=== PATIENT | female | born 1980 | race Hispanic/Latino ===

== ENCOUNTER 2021-12-29 18:30 | Observation (INO) | payer OTHER, SELFPAY ==
--- NOTE | ~2021-12-29 | CT_ITS ---
EXAMINATION: CT abdomen pelvis w con DATE: 12/29/2021 21:24 INDICATION: Abdominal pain, nausea and vomiting. TECHNIQUE: Computed tomography (CT) of the abdomen and pelvis was performed with 100 cc Omnipaque 350 intravenous contrast. The dose-length product was 409.32 mGy-cm. Automated exposure control and iter ative reconstruction technique were employed. COMPARISON: None. FINDINGS: There is dependent atelectasis in the lung bases. Heart size is normal. No significant vasc ular abnormality. Retroaortic left renal vein. Gallbladder is severely dilated with gallbladder wall thickening and multiple stones. There is a comm on duct stone measuring 9 mm, image 60. The liver, spleen, pancreas, adrenal glands and kidneys are u nremarkable. No lymphadenopathy. Nonobstructive bowel gas pattern. No abnormal pelvic masses or fluid collections. IMPRESSION: 1. Choledocholithiasis with biliary dilatation and gallbladder wall thickening as well as distention. Multiple additional gallstones are present. Findings suspicious for cholecystitis. Clinically correl ate. Reviewed, dictated and finalized at location A. RNATIVE ENERGY TECHNICIAN IMPRESSION: 1. Choledocholithiasis with biliary dilatation and gallbladder wall thickening as well as distention. Multiple additional gallstones are present. Findings victor hugo picious for cholecystitis. Clinically correlate.
--- NOTE | ~2021-12-29 | MR_ITS ---
EXAMINATION: MR MRCP wo/w con/w 3D wo ind DATE: 12/30/2021 16:13 INDICATION: Choledocholithiasis. Right upper quadrant abdominal pain. TECHNIQUE: Magnetic resonance imaging (MRI) of the abdomen was performed without and with 14 mL Multi Ana intravenous contrast. Sequences included coronal T2-weighted FS FSE, coronal T2-weighted FSE, a xial T1-weighted LAVA, coronal FS FIESTA, axial dual-echo T1-weighted SPGR, coronal lava-FLEX, sagitt al T2-weighted FSE, axial T2-weighted FSE, and axial DWI. Thick-slab T2-weighted FSE images were obta ined for magnetic resonance cholangiopancreatography (MRCP). Maximum intensity projection 3-D reconst ructions of the volumetric data were created by the technologist. Postcontrast sequences included cor onal LAVA-flex and time course of axial T1-weighted LAVA. COMPARISON: CT abdomen and pelvis 12/29/2021 FINDINGS: ABDOMEN MRI: There is diffuse hepatic steatosis. The gallbladder is distended and contains gallstones . There is a 9 mm cyst in the cystic duct. The spleen, pancreas, adrenal glands, and kidneys are norm al. There are no dilated loops of bowel. There are no pathologically enlarged lymph nodes. There is n o free intraperitoneal fluid. ABDOMEN MRCP: The common duct measures 3 mm. No choledocholithiasis. IMPRESSION: 1. Acute calculous cholecystitis. 2. Normal common duct. No choledocholithiasis. Reviewed, dictated and finalized at location A. D HEALTH ASSOCIATE
[2021-12-29 18:33] VITALS: BP 114/89; PULSE 96; RESP 18; TEMP 36.3; O2SAT 98
[2021-12-29 19:10] LABS: Basophils Percent Auto 0.3 % (0.2-1.2); Eosinophils Absolute Auto 0.2 K/mm3 (0-0.3); Eosinophils Percent Auto 3.7 % (0-4.4); Hematocrit 37.6 % (37.0-47.0); Hemoglobin 12.7 g/dL (12.0-15.0); Immature Granulocyte Absolute 0.01 K/mm3 (0.00-0.031); Immature Granulocyte Percent A 0.2 % (0-0.5); Lymphocytes Absolute Auto 1.83 K/mm3 (0.9-3.2); Lymphocytes Percent Auto 29.2 % (18.3-44.2); Mean Corpuscular HGB Conc 33.8 g/dl (32-36); Mean Corpuscular Volume 88.9 fl (80-100); Mean Platelet Volume 8.6 fl (7.4-10.4); Monocytes Absolute Auto 0.5 K/mm3 (0.1-0.6); Monocytes Percent Auto 8.1 % (2.6-8.5); Neutrophils Absolute Auto 3.7 K/mm3 (1.3-6.7); Neutrophils Percent Auto 58.5 % (45.5-73.1); Platelet Count Result 252 k/mm3 (150-375); Red Blood Count 4.23 M/mm3 (4.2-5.4); Red Cell Distribution Width 12.2 % (11.5-14.5); White Blood Count 6.3 K/mm3 (4.5-10.0)
--- NOTE | 2021-12-29 19:11 | ED.ABDPAIN ---
HPI - Abdominal Pain General Chief Complaint: Abdominal Pain Stated Complaint: abd pain Time Seen by Provider: 12/29/21 18:34 Source: patient Mode of arrival: ambulatory Limitations: language barrier ([employer] hide house utilized) History of Present Illness HPI narrative: This is a 41-year-old female who presents to the ED with complaints of epigastric abdominal pain x8 days. Patient reports she has a history of gastritis, diagnosed 15 years ago. Her last episode of gastritis was around 2 weeks ago, which lasted for 4 days at that time. She was not seen by a medical professional at that time. She states her episodes of gastritis are typically flared by eating spicy food. She did eat something spicy prior to this episode starting 8 days ago. She also reports having nausea and vomiting, but denies any fever, diarrhea, constipation, rectal bleeding, urinary symptoms, cough, congestion. She does mention her kids have been sick with vomiting as well. [email or web address] speech language pathology assistant was utilized in patient's room. Related Data Allergies Allergy/AdvReac Type Severity Reaction Status Date / Time No Known Allergies Allergy Unverified 02/13/16 19:29 Review of Systems Review of Systems: CONSTITUTIONAL: Denies fever, chills, or sweats. ENT: Denies rhinorrhea, congestion. CARDIOVASCULAR: Denies chest pain. RESPIRATORY: Denies cough or dyspnea. GASTROINTESTINAL: Reports abdominal pain, nausea, vomiting. Denies diarrhea, constipation, rectal bleeding. GENITOURINARY: Denies dysuria or hematuria. MUSCULOSKELETAL: Denies back pain, joint pain, or myalgia. NEUROLOGIC: Denies headache, numbness, or weakness. All systems reviewed & are unremarkable except as noted in HPI and below PMFSH Past Medical History Medical History (Updated 12/29/21 @ 22:46 by Shell Zavala PA-C) Gastritis Surgical History Surgical History (Updated 12/29/21 @ 19:36 by Shell Zavala PA-C) No pertinent past surgical history Social History Social History (Updated 12/29/21 @ 19:36 by Shell Zavala PA-C) Smoking status: Never smoker Alcohol intake: never Exam Narrative: GENERAL: Well appearing, well-nourished, non-toxic, in no acute distress. HEAD: Normocephalic, atraumatic. EYES: EOMI, conjunctivae clear bilaterally. NECK: Supple. No adenopathy, no masses. RESPIRATORY: Airway patent, respirations nonlabored. Clear to auscultation bilaterally, no rales, rhonchi, wheezing. CARDIOVASCULAR: Regular rate and rhythm without murmurs, rubs, or gallops. Peripheral pulses 2+ and equal bilaterally. ABDOMINAL: Soft, diffuse mild tenderness to palpation, moderate tenderness to palpation in epigastrium and RUQ, nondistended, no hepatosplenomegaly. Normoactive BS. MUSCULOSKELETAL: Moves all extremities. Strength/ROM intact without gross deformities or TTP. No edema. SKIN: Warm, dry, normal color. No rashes. NEURO: A&O X3. Speech clear. Cranial nerves II-XII grossly intact. Steady gait. No ataxic movements. PSYCHIATRIC: Appropriate mood and affect. Normal interaction. Course Reevaluation(s) Reevaluation #1: Patient's pain still 6/10 in epigastrium and RUQ. Nausea improved. Date: 12/29/21 Time: 21:00 Consultations Consultation #1: Discussed with Dr. Enciso, GI patient presentation and workup. Agrees with admission at this time. Will consult. Date: 12/29/21 Time: 21:42 Consultation #2: Discussed with Dr. Ye, Hospitalist patient presentation and workup. Agrees with admission at this time. Date: 12/29/21 Time: 22:07 Date: 12/29/21 Time: 22:40 Additional Consultation(s): Discussed with Dr. Barker, General Surgery patient presentation and workup. Agrees with admission at this time. Will consult. Vital Signs Vital signs: Vital Signs Temperature 97.4 F L 12/29/21 18:33 Pulse Rate 96 12/29/21 18:33 Respiratory Rate 18 12/29/21 18:33 Blood Pressure 114/89 12/29/21 18:33 Pulse Oximetry 98 12/29/21 18:33 Temperature 97.4 F L
[2021-12-29 19:20] LABS: Alanine Aminotransferase 18 U/L (4-35); Albumin Level 4.4 g/dL (3.5-5.1); Alkaline Phosphatase 125 U/L (38-126); Anion Gap 7 mmol/L (8-16); Aspartate Amino Transferase 20 U/L (14-36); Bilirubin,Total 0.9 mg/dL (0.2-1.3); Blood Urea Nitrogen 8 mg/dL (7-17); Calcium 8.8 mg/dL (8.4-10.2); Carbon Dioxide 26 mmol/L (22-30); Chloride 103 mmol/L (98-107); Estimated CRCL calculation 86 ml/min; Estimated Glomerular Filt Rate > 60; Glucose 110 mg/dL (65-110); Lipase 94 U/L (23-300); Potassium 3.9 mmol/L (3.4-5.0); Sodium 136 mmol/L (137-145)
[2021-12-29] MEDS: SODIUM CHLORIDE 0.9% IV 1,000 ML 999 ML IV CONT (19:28)
[2021-12-29] MEDS: FAMOTIDINE 20 MG/2 ML VIAL IV PUSH (19:29)
[2021-12-29] MEDS: ONDANSETRON INJ 4 MG/2 ML VIAL IV PUSH (19:29)
[2021-12-29 19:43] LABS: Add Urine Microscopic? YES; Appearance Urine Clear (Clear); Bilirubin Urine Negative (Negative); Blood Urine 2+ (Negative); Color Urine Yellow (Yellow); Glucose Urine UA Negative (Negative); Ketones Urine 1+ mg/dL (Negative); Leukocyte Esterase Ur Negative LEU/UL (Negative); Nitrate Urine Negative (Negative); Protein Urine Negative (Negative); RBC Urine 0-2 /hpf (0-2); Squamous Epithelial Cell Urine Occasional /hpf (Few); Urobilinogen Urine Negative mg/dL (<2.0); WBC Urine 0-3 /hpf
[2021-12-29 20:09] VITALS: BP 114/73; PULSE 69; RESP 18; O2SAT 99
[2021-12-29 21:23] VITALS: BP 110/65; PULSE 81; RESP 18; O2SAT 99
[2021-12-29] MEDS: MORPHINE SULFATE (*CRX) 4 MG/ML INJ IV PUSH (21:30)
--- NOTE | 2021-12-29 22:10 | PM.IMHP ---
H&P: HPI History of Present Illness Date/Time: 12/29/21 22:10 Chief Complaint: Nausea and vomiting Narrative: This is a 41-year-old female with no significant past medical history patient presents to the emergency room due to right upper quadrant pain, nausea and vomiting for the last 8 days or so patient denies any fevers, rigors or chills, has not been able to eat or keep anything down. Pain is localized to the epigastric and right upper quadrant with radiation to the back she is rating is 3/10 at the time of my visit. Preliminary workup was significant for CT of abdomen and pelvis with numerous gallstones. Patient is been admitted for further evaluation management and treatment. Review of Systems Review of Systems: Nausea vomiting and abdominal pain Constitutional: Constitutional: Denies chills, Denies fever(s) and Denies night sweats Eyes: Eyes: Denies change in vision ENT: Denies dysphagia, Denies nasal congestion, Denies nasal discharge, Denies nasal obstruction and Denies odynophagia Cardiovascular: Cardiovascular: Denies pedal edema, Denies leg edema, Denies radiating jaw, neck or arm pain, Denies palpitations, Denies dyspnea on exertion and Denies orthopnea Respiratory: Respiratory: Denies cough, Denies excessive phlegm production and Denies dyspnea Gastrointestinal: Gastrointestinal: Reports abdominal pain, Denies dyspepsia, Denies heartburn, Reports nausea and Reports vomiting Genitourinary: Genitourinary: Denies dysuria Musculoskeletal: Musculoskeletal: Denies arthralgias and Denies joint swelling Integumentary/Breasts: Skin/Breast: Denies rash Neurologic: Denies focal weakness and Denies Sensory deficit (Neuro) Psychiatric: Psychiatric: Reports no additional psychiatric complaints and Reports as per HPI Endocrine: Endocrine: Denies cold intolerance, Denies heat intolerance, Denies polyphagia, Denies polydipsia, Denies polyuria and Denies palpitations Hematologic/Lymphatic: Hematologic/Lymphatic: Reports no additional hematologic/lymphatic complaints and Reports as per HPI Allergic/Immunologic: Allergic/Immunologic: Reports no additional allergic/immunologic complaints and Reports as per HPI [facility] Past Medical History Medical History (Updated 12/30/21 @ 02:16 by Genia Ye MD) Gastritis Surgical History Surgical History (Updated 12/29/21 @ 19:36 by Shell Zavala PA-C) No pertinent past surgical history Social History Social History (Updated 12/29/21 @ 19:36 by Shell Zavala PA-C) Smoking status: Never smoker Alcohol intake: never Substance use: never Substance use type: does not use Spiritual care concerns: No Meds Home Medications and Allergies Allergies Allergy/AdvReac Type Severity Reaction Status Date / Time No Known Allergies Allergy Unverified 02/13/16 19:29 Vital Signs Vital Signs - 24 hr 12/29/21 18:33 12/29/21 20:09 12/29/21 21:23 Temperature 97.4 F L Pulse Rate 96 69 81 Respiratory Rate 18 18 18 Blood Pressure 114/89 114/73 110/65 Pulse Oximetry 98 99 99 Exam Narrative: Patient is laying extraction Const: General: cooperative, comfortable, no acute distress, well developed, alert, awake and other (Well-appearing) Nutritional Appearance: average body habitus Orientation/consciousness: patient oriented x3 HENMT: Head: normal to inspection, normocephalic and atraumatic Ears: hearing grossly normal bilaterally General nose exam: Normal external nose present Face and sinus: normal facial exam Mouth: Yes Normal oral and palatal mucosa present Eyes: General: appearance normal, both eyes and all related structures Alignment and Position: alignment normal Sclera: sclerae normal Pupils: Equal, round and reactive pupils present EOM: EOMs intact bilaterally Neck: Neck: normal visual inspection, full ROM, no lymphadenopathy, supple and no JVD Thyroid: thyroid normal Lymphatic: no lymphadenopathy noted Resp: Effort & Inspection: normal r
[2021-12-29 23:29] VITALS: BP 115/72; PULSE 76; RESP 16; TEMP 36.1; O2SAT 100
[2021-12-29 23:30] VITALS: BMI 28.8
[2021-12-30 05:27] VITALS: BP 97/59; PULSE 70; RESP 16; TEMP 36.3; O2SAT 98
--- NOTE | 2021-12-30 07:24 | ADMGEN ---
[id number] This patient, Mallorie Nugent, was admitted to 3 [facility] Surg Room 328-01. Patient/family oriented to hospital policies and general routines including ID bracelet, bed and alarms, visiting hours, pain management, procedures, bathroom and other care routines, personal items, smoking policy, room service/diet, and visiting hours. Information on how to activate the Rapid Response Team has been discussed. Patient/Family are encouraged to report perceived risks to care and to ask questions if they do not understand what they are told or what they should do.
[2021-12-30 08:14] LABS: Basophils Percent Auto 0.3 % (0.2-1.2); Eosinophils Absolute Auto 0.2 K/mm3 (0-0.3); Eosinophils Percent Auto 3.8 % (0-4.4); Hematocrit 37.5 % (37.0-47.0); Hemoglobin 12.1 g/dL (12.0-15.0); Immature Granulocyte Absolute 0.02 K/mm3 (0.00-0.031); Immature Granulocyte Percent A 0.3 % (0-0.5); Lymphocytes Absolute Auto 1.44 K/mm3 (0.9-3.2); Lymphocytes Percent Auto 23.7 % (18.3-44.2); Mean Corpuscular HGB Conc 32.3 g/dl (32-36); Mean Corpuscular Hemoglobin 29.4 pg (26-34); Mean Corpuscular Volume 91.2 fl (80-100); Mean Platelet Volume 8.7 fl (7.4-10.4); Monocytes Absolute Auto 0.5 K/mm3 (0.1-0.6); Monocytes Percent Auto 7.4 % (2.6-8.5); Neutrophils Absolute Auto 3.9 K/mm3 (1.3-6.7); Neutrophils Percent Auto 64.5 % (45.5-73.1); Platelet Count Result 236 k/mm3 (150-375); Red Blood Count 4.11 M/mm3 (4.2-5.4); Red Cell Distribution Width 12.2 % (11.5-14.5); White Blood Count 6.1 K/mm3 (4.5-10.0)
[2021-12-30 08:18] LABS: Alanine Aminotransferase 23 U/L (4-35); Albumin Level 3.9 g/dL (3.5-5.1); Alkaline Phosphatase 113 U/L (38-126); Anion Gap 3 mmol/L (8-16); Aspartate Amino Transferase 29 U/L (14-36); Blood Urea Nitrogen 7 mg/dL (7-17); Calcium 8.4 mg/dL (8.4-10.2); Carbon Dioxide 27 mmol/L (22-30); Chloride 107 mmol/L (98-107); Estimated CRCL calculation 85 ml/min; Estimated Glomerular Filt Rate > 60; Glucose 85 mg/dL (65-110); Lipase 89 U/L (23-300); Potassium 3.8 mmol/L (3.4-5.0); Sodium 137 mmol/L (137-145)
[2021-12-30] MEDS: SODIUM CHLORIDE 0.9% IV 1,000 ML 125 ML IV CONT ×2 (08:45→17:05)
--- NOTE | 2021-12-30 10:01 | PM.CNGS ---
Assessment and Plan Assessment and plan (1) Choledocholithiasis with acute cholecystitis: Code(s): K80.42 - Calculus of bile duct with acute cholecystitis without obstruction Status: Acute Assessment and Plan: will get MRCP for further evaluation of CBD, exam and labs largely unremarkable, await GI input, will need interval cholecystectomy History of Present Illness Consult details Consult date: 12/30/21 Reason for consult: abdominal pain Requesting physician: Rosanna Winn PA-C Narrative: The patient is a 41-year-old female presenting to the emergency department complaining of a one-week history of severe right upper quadrant, epigastric abdominal pain with radiation to her back. The patient reports associated nausea, poor appetite, and bloating. The patient reports that the pain is exacerbated by eating, although it is pretty constant. The patient reports similar symptoms in the past, however, much more mild and intermittent. Review of Systems Constitutional: Constitutional: Reports anorexia, Reports fatigue, Reports lethargy, Denies malaise, Reports poor appetite, Denies weakness, Denies weight gain and Denies weight loss Eyes: Eyes: Reports no additional eye complaints ENT: Reports system reviewed and no additional complaints, except as documented Cardiovascular: Cardiovascular: Reports no additional cardiovascular complaints Respiratory: Respiratory: Reports no additional respiratory complaints Gastrointestinal: Gastrointestinal: Reports as per HPI, Reports abdominal pain, Reports bloating, Denies constipation, Denies GI cramping, Reports early satiety, Reports heartburn, Denies diarrhea, Denies loose stools, Reports nausea, Denies vomiting and Denies hematemesis Genitourinary: Genitourinary: Reports no additional female genitourinary complaints Musculoskeletal: Musculoskeletal: Reports no additional musculoskeletal complaints Integumentary/Breasts: Skin/Breast: Reports system reviewed and no additional complaints, except as docu Neurologic: Reports system reviewed and no additional complaints, except as documented Psychiatric: Psychiatric: Reports no additional psychiatric complaints Endocrine: Endocrine: Reports no additional endocrine complaints Hematologic/Lymphatic: Hematologic/Lymphatic: Reports no additional hematologic/lymphatic complaints Allergic/Immunologic: Allergic/Immunologic: Reports no additional allergic/immunologic complaints PMFSH Past Medical History Medical History Gastritis Surgical History Surgical History No pertinent past surgical history Social History Social History Smoking status: Never smoker Alcohol intake: never Substance use: never Substance use type: does not use Spiritual care concerns: No Comments FH - pt denies known biliary dz Meds Home Medications and Allergies Allergies Allergy/AdvReac Type Severity Reaction Status Date / Time No Known Allergies Allergy Unverified 02/13/16 19:29 Vital Signs Vital Signs - 24 hr 12/29/21 18:33 12/29/21 20:09 12/29/21 21:23 Temperature 36.3 C L Pulse Rate 96 69 81 Respiratory Rate 18 18 18 Blood Pressure 114/89 114/73 110/65 Pulse Oximetry 98 99 99 12/29/21 23:29 12/30/21 05:27 Temperature 36.1 C L 36.3 C L Pulse Rate 76 70 Respiratory Rate 16 16 Blood Pressure 115/72 97/59 L Pulse Oximetry 100 98 Exam Const: General: cooperative, comfortable, no acute distress and well developed Nutritional Appearance: overweight Orientation/consciousness: patient oriented x3 Limitations: no limitations HENMT: Head: normal to inspection, normocephalic and atraumatic Ears: hearing grossly normal bilaterally General nose exam: Normal external nose present Face and sinus: normal facial exam Mouth: Yes Normal oral and palatal
--- NOTE | 2021-12-30 11:35 | PM.IMPN ---
Progress Note: A&P Assessment and Plan (1) Choledocholithiasis with acute cholecystitis: Code(s): K80.42 - Calculus of bile duct with acute cholecystitis without obstruction Status: Acute Assessment and Plan: -as noted on CT -MRCP for evaluation of CBD -GI and general surgery consulted, appreciate recommendations -per surgery will need interval cholecystectomy (2) Nausea and vomiting: Code(s): R11.2 - Nausea with vomiting, unspecified Status: Acute Assessment and Plan: -resolved -NPO for now pending GI and general surgery plans -IVF while NPO Subjective Date/time seen: 12/30/21 11:35 Interval history: 41-year-old female with no significant past medical history admitted to the hospital for choledocholithiasis with acute cholecystitis. [employer] auto roller used for patient encounter. She states she is feeling much better. Her nausea and vomiting are better. Abdominal pain is better but she is still having some RUQ pain. Last BM was yesterday, no diarrhea. Review of Systems Review of Systems: All systems reviewed & are unremarkable except as noted in HPI and below Exam Narrative: General: No acute distress, non toxic appearing Eyes: PERRL, no scleral icterus HEENT: NCAT, external ears normal, MMM Respiratory: No respiratory distress, Lungs CTA bilaterally, no wheezing Cardiovascular: RRR, no murmur Abdominal: Soft, mild ttp RUQ, non distended, no rebound or guarding Musculoskeletal: Moves all 4 extremities, no edema Neurological: A/Ox3, speech normal, no facial asymmetry Skin: Warm, dry, no rashes Psychiatric: Normal affect, normal mood Objective Data Vital Signs Vital Signs: Vital Signs - 24 hr 12/29/21 18:33 12/29/21 20:09 12/29/21 21:23 Temperature 97.4 F L Pulse Rate 96 69 81 Respiratory Rate 18 18 18 Blood Pressure 114/89 114/73 110/65 Pulse Oximetry 98 99 99 12/29/21 23:29 12/30/21 05:27 Temperature 96.9 F L 97.3 F L Pulse Rate 76 70 Respiratory Rate 16 16 Blood Pressure 115/72 97/59 L Pulse Oximetry 100 98 Intake/Output Intake/Output: Intake & Output 12/27/21 12/28/21 12/29/21 12/30/21 23:59 23:59 23:59 23:59 Intake Total 1150 590 Balance 1150 590 Meds/Results Medications: Active Medications Generic Name Dose Route Start Last Admin Trade Name Freq PRN Reason Stop Dose Admin Enoxaparin Sodium 40 mg 12/30/21 09:00 12/30/21 08:38 Enoxaparin 40 Mg/0.4 Ml Syringe SUB-Q Not Given DAILY LUZ Piperacillin/Tazobactam/Dextrose 3.375 gm in 50 mls @ 100 mls/hr 12/30/21 06:00 12/30/21 11:19 Zosyn 3.375 Gm/D5w 50ml Pm IVPB 100 mls/hr Q6H LUZ Administration Sodium Chloride 1,000 mls @ 125 mls/hr 12/30/21 08:40 12/30/21 08:45 Normal Saline Iv IV CONT 125 mls/hr .Q8H LUZ Administration Ondansetron HCl 4 mg 12/29/21 22:15 Ondansetron Inj 4 Mg/2 Ml Vial IV PUSH Q4H PRN Nausea Radiology Results: ITS Impressions Abdomen/Pelvis CT 12/29/21 21:28 IMPRESSION: 1. Choledocholithiasis with biliary dilatation and gallbladder wall thickening as well as distention. Multiple additional gallstones are present. Findings suspicious for cholecystitis. Clinically correlate. Labs Labs: Laboratory Results - last 24 hr 12/29/21 12/29/21 12/29/21 19:04 19:04 19:26 WBC 6.3 RBC 4.23 Hgb 12.7 Hct 37.6 MCV 88.9 MCH 30.0 MCHC 33.8 RDW 12.2 Plt Count 252 MPV 8.6 Immature Gran % (Auto) 0.2 Neut % (Auto) 58.5 Lymph % (Auto) 29.2 [place] % (Auto) 8.1 Eos % (Auto) 3.7 Baso % (Auto) 0.3 Lymph # (Auto) 1.83 [place] # (Auto) 0.5 Eos # (Auto) 0.2 Baso # (Auto) 0.0 Abs Immat Gran (auto) 0.01 Absolute Neuts (auto) 3.7 Absolute Nucleated RBC 0.0 Nucleated RBC % 0.0 Sodium 136 L Potassium 3.9 Chloride 103 Carbon Dioxide 26 Anion Gap 7 L BUN 8 Creatinine 0.70 Estim Creat Clear Calc 86
[2021-12-30] MEDS: MORPHINE SULFATE (*CRX) 2 MG/ML INJ IV PUSH ×2 (12:49→21:38)
--- NOTE | 2021-12-30 13:31 | WPDGICN ---
Assessment and Plan Assessment and plan (1) Choledocholithiasis with acute cholecystitis: Code(s): K80.42 - Calculus of bile duct with acute cholecystitis without obstruction Status: Acute Assessment and Plan: findings in CT scan can explain symptoms liver enzymes normal and no pancreatitis will need ERCP probably will do Saturday (ok to have liquid diet for now since she is feeling better) and then cholecystectomy. This was explained in Martiniquais to patient and she voiced understanding. (2) Nausea and vomiting: Code(s): R11.2 - Nausea with vomiting, unspecified Status: Acute Assessment and Plan: improved, continue pain meds and antiemetics prn (3) Epigastric pain: Code(s): R10.13 - Epigastric pain Status: Acute Assessment and Plan: biliary cause never had scope GI Consult Note Consult date/time: 12/30/21 13:31 Reason for consult: n/v, choledocholithiasis HPI: Mallorie Nugent is a 41 year old female healthy female who was told that had gastritis about 15 years ago after had epigastric pain but he is not taking any meds at home. About 1 month ago had 3-4 days of epigastric discomfort but went away. This time with severe epigastric pain with radiation to ruq, associated with n/v, also had chills. She came to ER, CT scan a/p reviewed and showed 9 mm stone in CBD and cholelithiasis, possible cholecystitis and started on antibiotics. Interview was in slovenian. Review of Systems Constitutional: Constitutional: Reports chills Eyes: Eyes: Denies blurry vision ENT: Reports Normal hearing present Cardiovascular: Cardiovascular: Denies chest pain Respiratory: Respiratory: Denies dyspnea Gastrointestinal: Gastrointestinal: Reports abdominal pain, Reports nausea and Reports vomiting Genitourinary: Genitourinary: Denies hematuria Musculoskeletal: Musculoskeletal: Denies neck pain Integumentary/Breasts: Skin/Breast: Denies dry skin Neurologic: Denies headache(s) Psychiatric: Psychiatric: Denies anxiety PMF Past Medical History Medical History (Updated 12/30/21 @ 13:35 by Gamaliel Enciso MD) Epigastric pain Gastritis Surgical History Surgical History No pertinent past surgical history Social History Social History Smoking status: Never smoker Alcohol intake: never Substance use: never Substance use type: does not use Spiritual care concerns: No Meds Home Medications and Allergies Allergies Allergy/AdvReac Type Severity Reaction Status Date / Time No Known Allergies Allergy Unverified 02/13/16 19:29 Vital Signs Vital Signs - 24 hr 12/29/21 18:33 12/29/21 20:09 12/29/21 21:23 Temperature 97.4 F L Pulse Rate 96 69 81 Respiratory Rate 18 18 18 Blood Pressure 114/89 114/73 110/65 Pulse Oximetry 98 99 99 12/29/21 23:29 12/30/21 05:27 Temperature 96.9 F L 97.3 F L Pulse Rate 76 70 Respiratory Rate 16 16 Blood Pressure 115/72 97/59 L Pulse Oximetry 100 98 Exam Const: General: comfortable and no acute distress HENMT: General nose exam: Normal nares present Eyes: General: appearance normal, both eyes and all related structures Neck: Neck: no JVD Resp: Auscultation: clear to auscultation bilaterally Cardio: Rate: regular rate Rhythm: regular rhythm GI: Inspection: non-distended GI Palp: Yes Soft to palpation and Yes Tenderness to palpation present (GI) (epigastric and ruq, no rebound) Auscultation: normal bowel sounds Skin: General skin exam: normal color Neuro: Speech: normal speech Motor exam (neuro): Normal motor muscle tone present throughout Extrem: General: normal to inspection Psych: Mental Status: mental status grossly normal Results Labs CBC & Chem 7: 12/30/21 07:55 12/30/21 07:55 Labs: Short CBC 12/29/21 12/30/21 Range/U
[2021-12-30 13:41] VITALS: BP 108/66; PULSE 77; RESP 17; TEMP 36.3; O2SAT 99
[2021-12-30 22:00] VITALS: BP 115/75; PULSE 73; RESP 18; TEMP 36.6; O2SAT 100
[2021-12-31] MEDS: SODIUM CHLORIDE 0.9% IV 1,000 ML 125 ML IV CONT ×3 (04:51→23:32)
[2021-12-31 05:21] LABS: Basophils Percent Auto 0.4 % (0.2-1.2); Eosinophils Absolute Auto 0.3 K/mm3 (0-0.3); Eosinophils Percent Auto 5.6 % (0-4.4); Hematocrit 36.3 % (37.0-47.0); Hemoglobin 11.9 g/dL (12.0-15.0); Immature Granulocyte Absolute 0.02 K/mm3 (0.00-0.031); Immature Granulocyte Percent A 0.4 % (0-0.5); Lymphocytes Absolute Auto 1.23 K/mm3 (0.9-3.2); Lymphocytes Percent Auto 22.2 % (18.3-44.2); Mean Corpuscular HGB Conc 32.8 g/dl (32-36); Mean Corpuscular Hemoglobin 29.8 pg (26-34); Mean Corpuscular Volume 90.8 fl (80-100); Mean Platelet Volume 8.8 fl (7.4-10.4); Monocytes Absolute Auto 0.4 K/mm3 (0.1-0.6); Monocytes Percent Auto 6.7 % (2.6-8.5); Neutrophils Absolute Auto 3.6 K/mm3 (1.3-6.7); Neutrophils Percent Auto 64.7 % (45.5-73.1); Platelet Count Result 215 k/mm3 (150-375); White Blood Count 5.5 K/mm3 (4.5-10.0)
[2021-12-31 05:38] LABS: Alanine Aminotransferase 32 U/L (4-35); Albumin Level 3.7 g/dL (3.5-5.1); Alkaline Phosphatase 123 U/L (38-126); Anion Gap 7 mmol/L (8-16); Aspartate Amino Transferase 27 U/L (14-36); Bilirubin,Total 1.2 mg/dL (0.2-1.3); Blood Urea Nitrogen 5 mg/dL (7-17); Calcium 8.4 mg/dL (8.4-10.2); Carbon Dioxide 22 mmol/L (22-30); Chloride 108 mmol/L (98-107); Estimated CRCL calculation 85 ml/min; Estimated Glomerular Filt Rate > 60; Glucose 82 mg/dL (65-110); Lipase 92 U/L (23-300); Potassium 3.7 mmol/L (3.4-5.0); Sodium 137 mmol/L (137-145)
[2021-12-31 06:00] VITALS: BP 109/64; PULSE 80; RESP 18; TEMP 36.5; O2SAT 98
[2021-12-31 08:00] VITALS: PULSE 87; RESP 16; O2SAT 100
--- NOTE | 2021-12-31 08:08 | PM.IMPN ---
Progress Note: A&P Assessment and Plan (1) Choledocholithiasis with acute cholecystitis: Code(s): K80.42 - Calculus of bile duct with acute cholecystitis without obstruction Status: Acute Assessment and Plan: -as noted on CT -WBC normal , no fevers liver enzymes normal, lipase 92 WNL, and no pancreatitis ok to have liquid diet for now , feeling much better, able to eat some of her breakfast today with no N/V, No diarrhea/constipation today. continue to have the constant RUQ abdominal pain. Continue with IV Zosyn antibiotics. GI following: MRCP reviewed and no stones in bile duct. GI recommends: she is not going to need ERCP, probably stone passed and also she has normal liver enzymes and no pancreatitis. General Surgeon Dr. Barker planning for cholecystectomy tomorrow, patient will be NPO at midnight. I discussed this with the patient and answered her questions. Used levee superintendent [employer] #[phone] and [employer] # [phone] for patient encounter. (2) Nausea and vomiting: Code(s): R11.2 - Nausea with vomiting, unspecified Status: Acute Assessment and Plan: -resolved -NPO at midnight -IVFs continue -improved, continue pain meds and antiemetics prn (3) Epigastric pain: Code(s): R10.13 - Epigastric pain Status: Acute Assessment and Plan: biliary cause never had scope see above plans Subjective Date/time seen: 12/31/21 08:08 Interval history: Mallorie 41-year-old pleasant female with no significant past medical history admitted to the hospital for choledocholithiasis with acute cholecystitis. Today, she states she is feeling much better, was able to eat some of her breakfast today with no N/V, but continue to have the constant RUQ abdominal pain. Continue with IV Zosyn antibiotics. No diarrhea/constipation today. GI following: MRCP reviewed and no stones in bile duct. GI recommends: she is not going to need ERCP, probably stone passed and also she has normal liver enzymes and no pancreatitis. General Surgeon Dr. Barker planning for cholecystectomy tomorrow, patient will be NPO at midnight. I discussed this with the patient and answered her questions. Used levee superintendent [employer] #[phone] and [employer] # [phone] for patient encounter. Review of Systems Review of Systems: All systems reviewed & are unremarkable except as noted in HPI and below Constitutional: Constitutional: Denies chills, Denies fever(s) and Denies night sweats Eyes: Eyes: Denies change in vision ENT: Denies dysphagia, Denies nasal congestion, Denies nasal discharge, Denies nasal obstruction and Denies odynophagia Cardiovascular: Cardiovascular: Denies pedal edema, Denies leg edema, Denies radiating jaw, neck or arm pain, Denies palpitations, Denies dyspnea, Denies dyspnea on exertion and Denies orthopnea Respiratory: Respiratory: Denies cough, Denies excessive phlegm production, Denies dyspnea and Denies dyspnea on exertion Gastrointestinal: Gastrointestinal: Reports abdominal pain, Reports bloating, Denies dysphagia, Denies dyspepsia, Denies heartburn, Reports nausea, Denies odynophagia and Denies vomiting Genitourinary: Genitourinary: Denies dysuria Musculoskeletal: Musculoskeletal: Denies arthralgias and Denies joint swelling Integumentary/Breasts: Skin/Breast: Denies rash Neurologic: Denies focal weakness and Denies Sensory deficit (Neuro) Psychiatric: Psychiatric: Reports no additional psychiatric complaints and Reports as per HPI Endocrine: Endocrine: Denies cold intolerance, Denies heat intolerance, Denies polyphagia, Denies polydipsia, Denies polyuria and Denies palpitations Hematologic/Lymphatic: Hematologic/Lymphatic: Reports no additional hematologic/lymphatic complaints and Reports as per HPI Allergic/Immunologic: Allergic/Immunologic: Reports no additional allergic/immunologic complaints and Reports as per HPI Exam Narrative: General: No acute distress, non toxic appearing Eyes: PERRL, no scleral icterus HEENT: N
--- NOTE | 2021-12-31 09:18 | WPDGIPROGNO ---
Progress Note: A&P Assessment and Plan (1) Choledocholithiasis with acute cholecystitis: Code(s): K80.42 - Calculus of bile duct with acute cholecystitis without obstruction Status: Acute Assessment and Plan: MRCP reviewed and no stones in bile duct, normal size 3 mm. Found acute calculous cholecystitis. she is not going to need ERCP, probably stone passed and also she has normal liver enzymes and no pancreatitis timing of cholecystectomy per surgery team continue with antibiotics (2) Epigastric pain: Code(s): R10.13 - Epigastric pain Status: Acute Assessment and Plan: improved (3) Nausea and vomiting: Code(s): R11.2 - Nausea with vomiting, unspecified Status: Acute Assessment and Plan: no more vomiting Subjective Date/time seen: 12/31/21 09:18 Interval history: doing better and tolerating liquid diet but still with some pain in upper abdomen Review of Systems Review of Systems: All systems reviewed & are unremarkable except as noted in HPI and below Exam Const: General: comfortable and no acute distress HENMT: General nose exam: Normal nares present Eyes: General: appearance normal, both eyes and all related structures Neck: Neck: no JVD Resp: Auscultation: clear to auscultation bilaterally Cardio: Rate: regular rate Rhythm: regular rhythm GI: Inspection: non-distended GI Palp: Yes Soft to palpation and Yes Tenderness to palpation present (GI) (mild epigastric and ruq, no rebound) Auscultation: normal bowel sounds Skin: General skin exam: normal color Neuro: Speech: normal speech Motor exam (neuro): Normal motor muscle tone present throughout Extrem: General: normal to inspection Psych: Mental Status: mental status grossly normal Objective Data Vital Signs Vital Signs: Vital Signs - 24 hr 12/30/21 13:41 12/30/21 22:00 12/31/21 06:00 Temperature 97.3 F L 97.8 F 97.7 F Pulse Rate 77 73 80 Respiratory Rate 17 18 18 Blood Pressure 108/66 115/75 109/64 Pulse Oximetry 99 100 98 Intake/Output Intake/Output: Intake & Output 12/28/21 12/29/21 12/30/21 12/31/21 23:59 23:59 23:59 23:59 Intake Total 1150 2190 1150 Output Total 600 Balance 1150 1590 1150 Meds/Results Medications: Active Medications Generic Name Dose Route Start Last Admin Trade Name Freq PRN Reason Stop Dose Admin Enoxaparin Sodium 40 mg 12/30/21 09:00 12/30/21 08:38 Enoxaparin 40 Mg/0.4 Ml Syringe SUB-Q Not Given DAILY LUZ Hydromorphone HCl 0.5 mg 12/30/21 12:27 Hydromorphone Hcl Inj (*Crx) 1 Mg/Ml Syr IV PUSH Q4HR PRN Pain Rated 7-10 Piperacillin/Tazobactam/Dextrose 3.375 gm in 50 mls @ 100 mls/hr 12/30/21 06:00 12/31/21 05:33 Zosyn 3.375 Gm/D5w 50ml Pm IVPB 100 mls/hr Q6H LUZ Administration Sodium Chloride 1,000 mls @ 125 mls/hr 12/30/21 08:40 12/31/21 04:51 Normal Saline Iv IV CONT 125 mls/hr .Q8H LUZ Administration Acetaminophen 650 mg in 65 mls @ 260 mls/hr 12/30/21 12:25 Ofirmev 650 Mg Ivpb IVPB 12/31/21 12:24 Q4HR PRN Pain Rated 1-3 Morphine Sulfate 2 mg 12/30/21 12:26 12/30/21 21:38 Morphine Sulfate (*Crx) 2 Mg/Ml Inj IV PUSH 2 mg Q4H PRN Administration Pain Rated 4-6 Ondansetron HCl 4 mg 12/29/21 22:15 Ondansetron Inj 4 Mg/2 Ml Vial IV PUSH Q4H PRN Nausea Radiology Results: ITS Impressions Abdomen/Pelvis CT 12/29/21 21:28 IMPRESSION: 1. Choledocholithiasis with biliary dilatation and gallbladder wall thickening as well as distention. Multiple additional gallstones are present. Findings suspicious for cholecystitis. Clinically correlate. MRCP 12/31/21 07:35 IMPRESSION: 1. Acute calculous cholecystitis. 2. Normal common duct. No choledocholithiasis. Labs Labs: Laboratory Results - last 24 hr 12/31/21 12/31/21 05:10 05:10 WBC 5.5 RBC 4.00 L Hgb 11.9 L Hct 36.3 L MCV 90.8 MCH 29.8 MCHC 32.8
--- NOTE | 2021-12-31 10:22 | PM.PNGS ---
Progress Note: A&P Assessment and Plan (1) Choledocholithiasis with acute cholecystitis: Code(s): K80.42 - Calculus of bile duct with acute cholecystitis without obstruction Status: Acute Assessment and Plan: labs and imaging reviewed, will proceed c interval cholecystectomy hopefully tomorrow Subjective Subjective Date/Time Seen: 12/31/21 10:22 feels better, mild RUQ pain, gabby diet Review of Systems Review of Systems: All systems reviewed & are unremarkable except as noted in HPI and below Exam Const: General: cooperative, comfortable and no acute distress Resp: Auscultation: clear to auscultation bilaterally Cardio: Rate: regular rate Rhythm: regular rhythm GI: Inspection: normal to inspection and distended GI Palp: Yes abdominal tenderness, Yes Soft to palpation, Yes Tenderness to palpation present (GI), No Guarding due to palpation present (GI) and No Rigid due to palpation Objective Data Vital Signs Vital Signs: Vital Signs - 24 hr 12/30/21 13:41 12/30/21 22:00 12/31/21 06:00 Temperature 36.3 C L 36.6 C 36.5 C Pulse Rate 77 73 80 Respiratory Rate 17 18 18 Blood Pressure 108/66 115/75 109/64 Pulse Oximetry 99 100 98 Intake/Output Intake/Output: Intake & Output 12/28/21 12/29/21 12/30/21 12/31/21 23:59 23:59 23:59 23:59 Intake Total 1150 2190 1390 Output Total 600 Balance 1150 1590 1390 Meds/Results Medications: Active Medications Generic Name Dose Route Start Last Admin Trade Name Freq PRN Reason Stop Dose Admin Enoxaparin Sodium 40 mg 12/30/21 09:00 12/30/21 08:38 Enoxaparin 40 Mg/0.4 Ml Syringe SUB-Q Not Given DAILY LUZ Hydromorphone HCl 0.5 mg 12/30/21 12:27 Hydromorphone Hcl Inj (*Crx) 1 Mg/Ml Syr IV PUSH Q4HR PRN Pain Rated 7-10 Piperacillin/Tazobactam/Dextrose 3.375 gm in 50 mls @ 100 mls/hr 12/30/21 06:00 12/31/21 05:33 Zosyn 3.375 Gm/D5w 50ml Pm IVPB 100 mls/hr Q6H LUZ Administration Sodium Chloride 1,000 mls @ 125 mls/hr 12/30/21 08:40 12/31/21 04:51 Normal Saline Iv IV CONT 125 mls/hr .Q8H LUZ Administration Acetaminophen 650 mg in 65 mls @ 260 mls/hr 12/30/21 12:25 Ofirmev 650 Mg Ivpb IVPB 12/31/21 12:24 Q4HR PRN Pain Rated 1-3 Morphine Sulfate 2 mg 12/30/21 12:26 12/30/21 21:38 Morphine Sulfate (*Crx) 2 Mg/Ml Inj IV PUSH 2 mg Q4H PRN Administration Pain Rated 4-6 Ondansetron HCl 4 mg 12/29/21 22:15 Ondansetron Inj 4 Mg/2 Ml Vial IV PUSH Q4H PRN Nausea Radiology Results: ITS Impressions Abdomen/Pelvis CT 12/29/21 21:28 IMPRESSION: 1. Choledocholithiasis with biliary dilatation and gallbladder wall thickening as well as distention. Multiple additional gallstones are present. Findings suspicious for cholecystitis. Clinically correlate. MRCP 12/31/21 07:35 IMPRESSION: 1. Acute calculous cholecystitis. 2. Normal common duct. No choledocholithiasis. Labs Labs: Laboratory Results - last 24 hr 12/31/21 12/31/21 05:10 05:10 WBC 5.5 RBC 4.00 L Hgb 11.9 L Hct 36.3 L MCV 90.8 MCH 29.8 MCHC 32.8 RDW 12.0 Plt Count 215 MPV 8.8 Immature Gran % (Auto) 0.4 Neut % (Auto) 64.7 Lymph % (Auto) 22.2 [place] % (Auto) 6.7 Eos % (Auto) 5.6 H Baso % (Auto) 0.4 Lymph # (Auto) 1.23 [place] # (Auto) 0.4 Eos # (Auto) 0.3 Baso # (Auto) 0.0 Abs Immat Gran (auto) 0.02 Absolute Neuts (auto) 3.6 Absolute Nucleated RBC 0.0 Nucleated RBC % 0.0 Sodium 137 Potassium 3.7 Chloride 108 H Carbon Dioxide 22 Anion Gap 7 L BUN 5 L Creatinine 0.70 Estim Creat Clear Calc 85 Estimated GFR > 60 Glucose 82 Calcium 8.4 Total Bilirubin 1.2 AST 27 ALT 32 Alkaline Phosphatase 123 Total Protein 7.0 Albumin 3.7 Lipase 92 Quality VTE Prophylaxis VTE prophylaxis: mechanical ordered
[2021-12-31] MEDS: MORPHINE SULFATE (*CRX) 2 MG/ML INJ IV PUSH ×3 (13:05→23:38)
[2021-12-31 14:00] VITALS: BP 113/70; PULSE 87; RESP 16; TEMP 36.6; O2SAT 100
[2021-12-31 22:00] VITALS: BP 122/76; PULSE 66; RESP 18; TEMP 36.4; O2SAT 100
[2022-01-01] VITALS (13 sets, daily range): BP systolic 101–132; BP diastolic 56–86; PULSE 64–96; RESP 16–22; TEMP 36.1–36.3; O2SAT 94–100
[2022-01-01 05:24] LABS: Basophils Percent Auto 0.6 % (0.2-1.2); Eosinophils Absolute Auto 0.4 K/mm3 (0-0.3); Eosinophils Percent Auto 8.4 % (0-4.4); Hematocrit 34.3 % (37.0-47.0); Hemoglobin 11.6 g/dL (12.0-15.0); Immature Granulocyte Absolute 0.01 K/mm3 (0.00-0.031); Immature Granulocyte Percent A 0.2 % (0-0.5); Lymphocytes Absolute Auto 1.62 K/mm3 (0.9-3.2); Lymphocytes Percent Auto 31.6 % (18.3-44.2); Mean Corpuscular HGB Conc 33.8 g/dl (32-36); Mean Corpuscular Hemoglobin 29.8 pg (26-34); Mean Corpuscular Volume 88.2 fl (80-100); Mean Platelet Volume 8.7 fl (7.4-10.4); Monocytes Absolute Auto 0.4 K/mm3 (0.1-0.6); Monocytes Percent Auto 7.8 % (2.6-8.5); Neutrophils Absolute Auto 2.6 K/mm3 (1.3-6.7); Neutrophils Percent Auto 51.4 % (45.5-73.1); Platelet Count Result 217 k/mm3 (150-375); Red Blood Count 3.89 M/mm3 (4.2-5.4); Red Cell Distribution Width 12.1 % (11.5-14.5); White Blood Count 5.1 K/mm3 (4.5-10.0)
[2022-01-01 05:35] LABS: Alanine Aminotransferase 34 U/L (4-35); Albumin Level 3.7 g/dL (3.5-5.1); Alkaline Phosphatase 104 U/L (38-126); Anion Gap 3 mmol/L (8-16); Aspartate Amino Transferase 24 U/L (14-36); Bilirubin,Total 0.7 mg/dL (0.2-1.3); Blood Urea Nitrogen 3 mg/dL (7-17); Calcium 8.2 mg/dL (8.4-10.2); Carbon Dioxide 28 mmol/L (22-30); Chloride 107 mmol/L (98-107); Estimated CRCL calculation 85 ml/min; Estimated Glomerular Filt Rate > 60; Glucose 94 mg/dL (65-110); Potassium 3.7 mmol/L (3.4-5.0); Sodium 138 mmol/L (137-145)
[2022-01-01] MEDS: SODIUM CHLORIDE 0.9% IV 1,000 ML 125 ML IV CONT (05:58)
[2022-01-01] MEDS: LACTATED RINGERS 1,000 ML 30 ML IV CONT ×2 (08:45→11:13)
--- NOTE | 2022-01-01 08:50 | WPDANESEPPF ---
Anes - Initial Pre Proc Eval Procedure: Operation Date: 01/01/22 09:30 Proposed Procedures p Laparoscopic Cholecystectomy - Ani Barker MD Date/Time: 01/01/22 08:50 Surgeon: Margareth Lieberman NP Pre Op Diagnosis: choledocholithiasis Patient Data Age: 41 Gender: F Height: 1.57 m Weight: 71.5 kg Last Vital Signs Temp 36.1 C L 01/01/22 06:00 Pulse 81 01/01/22 06:00 Resp 18 01/01/22 06:00 BP 114/70 01/01/22 06:00 Pulse Ox 98 01/01/22 06:00 Allergies Allergy/AdvReac Type Severity Reaction Status Date / Time No Known Allergies Allergy Unverified 02/13/16 19:29 Laboratory Tests 01/01/22 01/01/22 05:09 05:09 WBC 5.1 K/mm3 K/mm3 (4.5-10.0) RBC 3.89 M/mm3 L M/mm3 (4.2-5.4) Hgb 11.6 g/dL L g/dL (12.0-15.0) Hct 34.3 % L % (37.0-47.0) MCV 88.2 fl fl (80-100) MCH 29.8 pg pg (26-34) MCHC 33.8 g/dl g/dl (32-36) RDW 12.1 % % (11.5-14.5) Plt Count 217 k/mm3 k/mm3 (150-375) MPV 8.7 fl fl (7.4-10.4) Immature Gran % (Auto) 0.2 % % (0-0.5) Neut % (Auto) 51.4 % % (45.5-73.1) Lymph % (Auto) 31.6 % % (18.3-44.2) [place] % (Auto) 7.8 % % (2.6-8.5) Eos % (Auto) 8.4 % H % (0-4.4) Baso % (Auto) 0.6 % % (0.2-1.2) Lymph # (Auto) 1.62 K/mm3 K/mm3 (0.9-3.2) [place] # (Auto) 0.4 K/mm3 K/mm3 (0.1-0.6) Eos # (Auto) 0.4 K/mm3 H K/mm3 (0-0.3) Baso # (Auto) 0.0 K/mm3 K/mm3 (0.0-0.1) Abs Immat Gran (auto) 0.01 K/mm3 K/mm3 (0.00-0.031) Absolute Neuts (auto) 2.6 K/mm3 K/mm3 (1.3-6.7) Absolute Nucleated RBC 0.0 K/mm3 K/mm3 (0.0-0.012) Nucleated RBC % 0.0 % % (0.0-0.2) Sodium 138 mmol/L mmol/L (137-145) Potassium 3.7 mmol/L mmol/L (3.4-5.0) Chloride 107 mmol/L mmol/L (98-107) Carbon Dioxide 28 mmol/L mmol/L (22-30) Anion Gap 3 mmol/L L mmol/L (8-16) BUN 3 mg/dL L mg/dL (7-17) Creatinine 0.70 mg/dL mg/dL (0.7-1.0) Estim Creat Clear Calc 85 ml/min ml/min Estimated GFR > 60 (59 - ) Glucose 94 mg/dL mg/dL (65-110) Calcium 8.2 mg/dL L mg/dL (8.4-10.2) Total Bilirubin 0.7 mg/dL mg/dL (0.2-1.3) AST 24 U/L U/L (14-36) ALT 34 U/L U/L (4-35) Alkaline Phosphatase 104 U/L U/L (38-126) Total Protein 7.0 g/dL g/dL (6.3-8.2) Albumin 3.7 g/dL g/dL (3.5-5.1) Patient hx anesthesia problems: none Family hx anesthesia problems: none Results Review: All pre-operative results and documents have been reviewed as part of the pre-operative evaluation. [facility] Past Medical History Medical History Epigastric pain Gastritis Surgical History Surgical History No pertinent past surgical history Social History Social History Smoking status: Never smoker Alcohol intake: never Substance use: never Substance use type: does not use Spiritual care concerns: No Anes - Eval Final PreProcedure Day of Procedure 01/01/22 08:50 Patient weight: overweight Heart: regular rate and rhythm Lungs: clear to auscultation Airway: Mallampati scale class II Neurological: alert and oriented Last oral intake: >/= 8 hours ASA classification: II Emergent: no Anesthetic plan: proceed Anesthesia type and monitoring: general ETT and standard monitoring Other findings: per park interpreter Results Review: All pre-operative results and documents have been reviewed as part of the pre-operative evaluation. Informed Consent: The patient's anesthetic plan and its attendant risks and benefits were discussed with the patient/family/POA. Questions were solicited and answers provided to the satisfaction of the patient/family/POA.
--- NOTE | 2022-01-01 09:01 | WPDHPUPDATE1 ---
History and Physical Update Update Date/Time: 01/01/22 09:01 History and Physical has been reviewed, including an updated exam of the patient. There are NO changes in the patient's condition. Risks, benefits, and alternatives have been discussed and questions answered. Patient agrees to proceed with procedure.
--- NOTE | 2022-01-01 09:09 | SUR.PREOP ---
0845-PT TO PRE OP AREA. WREATH INSPECTOR USED TO COMMUNICATE. DR. BRANNON AND DR. VALDIVIA AT BEDSIDE TO UPDATE PT. ALL QUESTIONS ANSWERED. PT DENIES PAIN AT THIS TIME. NO NEED FOR TYPE AND SCREEN OR BLOOD CONSENT PER DR. VALDIVIA. PT ON SCHEDULED ZOSYN, DUE AT NOON.
[2022-01-01] MEDS: BUPIVACAINE/EPINEPHRINE 0.25% 10 ML VIAL 30 ML INFILTRATE (09:32)
[2022-01-01] MEDS: fentaNYL CITRATE INJ (*CRX) 100 MCG/2 ML VIAL 25 MCG IV PUSH ×2 (10:38→10:40)
--- NOTE | 2022-01-01 11:39 | W.PM.PROC2 ---
Procedure Note - Detailed Date of Procedure 01/01/22 Pre-op Diagnosis acute cholecystitis, cholelithiasis Post-op Diagnosis Same Procedure Performed Laparoscopic cholecystectomy Surgeon Ani Barker MD Anesthesia General Indications 41 y/o F c acute cholecystitis, cholelithiasis Findings hydrops cholecystitis, cholelithiasis Description of Procedure The patient was taken to the operating room placed in the supine position. After adequate induction of general anesthesia, the patient was prepped and draped in normal sterile fashion. A time-out was then performed to verify the patient's identity as well as the procedure being performed. I then made a 5 mm incision in the infraumbilical region. Through this, a Veress needle was placed into the peritoneal cavity and CO2 gas was then insufflated. After adequate pneumoperitoneum was achieved, the Veress needle was removed and a 5 mm optiview trocar was placed through this incision under direct visualization. I then placed the laparoscope through this trocar site and under direct visualization placed a further 12 mm subxiphoid port as well as 2 additional 5 mm ports in the right upper abdomen. The gallbladder was then identified and was noted to be massively inflamed, distended, and full of gallstones. The gallbladder was unable to be grapsed secondary to inflammation, distension and subsequently I decompressed the gallbladder with an ovarian needle. At this point, the patient was noted to have hydrops. I was then able to place a grasper at the dome of the gallbladder and this was retracted anterior and cephalad up over the liver. A 2nd retractor was then placed at the infundibulum and retracted laterally, this allowed visualization of the triangle of Calot. I then was able to visualize the cystic duct in its entirety from its proximal insertion into the gallbladder, to its distal junction with the common hepatic/common bile duct junction. The cystic duct was noted to be quite dilated. At this point, I carefully skeletonized the proximal cystic duct with the [place] dissector. I then clipped and transected the proximal cystic duct. Next I visualized the cystic artery. Again the artery was skeletonized, clipped, and transected. I then used the Bovie cautery to take down the peritoneal attachments of the gallbladder off the liver bed. This was difficult given the amount of inflammation in the posterior space. Once the gallbladder specimen was completely detached, an endo-pouch was placed through the 12 mm port site. I then placed the gallbladder specimen into the Endo pouch and removed the endo-pouch from the 12 mm port site. The specimen will now be sent to pathology for further review. I then copiously irrigated the right upper quadrant. Some mild oozing was noted in the liver bed and this was controlled with the bovie cautery. Hemostasis was noted in the liver bed, the clips were noted to be in good position on both the cystic duct stump and the cystic artery stump. No other pathology was noted in the right upper quadrant. I then moved the laparoscope to the subxiphoid port. No iatrogenic injury or other pathology was noted in the lower abdomen. I then closed the 12 mm trocar site under direct visualization using the Alvarez cone and 0 Vicryl suture. At this point, the abdomen was desufflated and all ports removed. All port sites were then closed with 4.O Monocryl subcuticular sutures. Dermabond was placed on each incision. The patient tolerated the procedure well, was extubated in the operating room postoperative and will be transferred to the recovery room in stable condition Estimated Blood Loss 25 Urine Output 600 Drains No Packing No Pathology Yes Complications No immediate complications Condition Stable Disposition PACU
[2022-01-01] MEDS: MORPHINE SULFATE (*CRX) 2 MG/ML INJ IV PUSH ×2 (12:41→17:37)
--- NOTE | 2022-01-01 17:49 | PM.DS ---
DS: Admitting Diagnosis Discharge Date 01/01/22 Admitting Diagnosis Choledocholithiasis with acute cholecystitis DS: Discharge Diagnosis Discharge Diagnosis (1) Choledocholithiasis with acute cholecystitis: Code(s): K80.42 - Calculus of bile duct with acute cholecystitis without obstruction Status: Acute (2) S/P cholecystectomy: Code(s): Z90.49 - Acquired absence of other specified parts of digestive tract Status: Acute DS: Summary Hospital Course Hospital Course: 41-year-old pleasant female with no significant past medical history admitted to the hospital for choledocholithiasis with acute cholecystitis. Surgery and GI were consulted. Underwent diagnostic imaging which was s/o acute cholecystitis. Was taken to OR, underwent laparoscopic cholecystectomy. Post op stay was uneventful, wa able to tolerate diet. Discharged home in stable condition with advice to follow up with surgery in 2 weeks. Status at Discharge Functional status at discharge: independent ambulation Overall status at discharge: patient is progressing back to baseline Time Spent with Patient Time attestation: Total time spent providing and/or coordinating discharge services: Time spent: Greater than 30 minutes Exam Const: General: no acute distress Limitations: no limitations HENMT: Mouth: Yes moist mucous membranes Eyes: Pupils: Equal, round and reactive pupils present Neck: Neck: supple Resp: Auscultation: clear to auscultation bilaterally Cardio: Rate: regular rate Rhythm: regular rhythm GI: Inspection: distended GI Palp: Yes Soft to palpation Auscultation: normal bowel sounds Other: incisions from laprascopic procedure look healthy Skin: General skin exam: normal color Neuro: General: gait normal Psych: Mental Status: mental status grossly normal Affect: normal affect DS: Data Data Completed and Pending Pending studies at discharge: Pending at discharge 01/01/22 09:29 Surgical [PTH] Routine Labs on day of discharge: Labs from last 24 hours 01/01/22 01/01/22 05:09 05:09 WBC 5.1 RBC 3.89 L Hgb 11.6 L Hct 34.3 L MCV 88.2 MCH 29.8 MCHC 33.8 RDW 12.1 Plt Count 217 MPV 8.7 Immature Gran % (Auto) 0.2 Neut % (Auto) 51.4 Lymph % (Auto) 31.6 [place] % (Auto) 7.8 Eos % (Auto) 8.4 H Baso % (Auto) 0.6 Lymph # (Auto) 1.62 [place] # (Auto) 0.4 Eos # (Auto) 0.4 H Baso # (Auto) 0.0 Abs Immat Gran (auto) 0.01 Absolute Neuts (auto) 2.6 Absolute Nucleated RBC 0.0 Nucleated RBC % 0.0 Sodium 138 Potassium 3.7 Chloride 107 Carbon Dioxide 28 Anion Gap 3 L BUN 3 L Creatinine 0.70 Estim Creat Clear Calc 85 Estimated GFR > 60 Glucose 94 Calcium 8.2 L Total Bilirubin 0.7 AST 24 ALT 34 Alkaline Phosphatase 104 Total Protein 7.0 Albumin 3.7 Discharge Plan Discharge Attending physician on discharge: Anais Quiroz Consulting providers: Rajinder Rhodes ; Gamaliel Enciso ; Ani Barker Discharging Clinician: Anais Quiroz Anticipated Discharge Date/Time: 01/01/22 17:43 Patient Disposition: Home, Self-Care Activity: may drive after 2 weeks and as tolerated Diet: low cholesterol and low fat Patient Instructions: Antibiotic Form Stand Alone Forms: General Discharge Information Follow-up/Referrals: Ani Barker MD [Physician] - 2 Weeks Discharge Medications: New hydrocodone-acetaminophen 5-300 mg tablet 1 tablet PO Q8H PRN (Reason: pain) Qty: 10 RF: 0 ibuprofen 600 mg tablet 600 mg PO Q6H PRN (Reason: pain) Qty: 30 RF: 0 docusate sodium [Colace] 100 mg capsule 100 mg PO BID Qty: 14 RF: 0 Date of admission: 12/29/21 22:15 Primary Care Provider: PHYSICIAN,TRAILER ASSEMBLER Admitting Provider: Genia Ye V. Attending physician on admission: Margareth Lieberman Condition: Stable Quality VTE Prophylaxis VTE prophylaxis: mechanical ordered
== END 2022-01-01 18:35 | disposition home or self-care (01) ==
LOC: ANHED 22:52 → ANH3MEDSUR 22:54
PROVIDERS: Physician Assistant; Surgery; Admitting Provider Internal Medicine; Emergency Provider Emergency Medicine; Visit Provider Nurse Practitioner
PROC: 0FT44ZZ Resection of Gallbladder, Percutaneous Endoscopic Approach (ICD-10-PCS; CPT 47562; principal; 2022-01-01 09:30)
DX: K80.10 Calculus of gallbladder with chronic cholecystitis without obstruction (principal); K82.1 Hydrops of gallbladder; R11.2 Nausea with vomiting, unspecified
CPT/HCPCS: 47562; 36415; 74177; 74183; 76376; 80053; 81001; 81025; 83690; 85025; 88304; 96361; 96365; 96366; 96367; 96374; 96375; 96376; 99285; A9577; G0378; G0379; J0131; J1100; J2250; J2270; J2405; J2543; J2704; J3010; J7030; J7120; Q9967

== ENCOUNTER 2022-04-01 22:24 | Emergency (ER) | payer OTHER, SELFPAY ==
--- NOTE | ~2022-04-01 | CT_ITS ---
EXAMINATION: CT abdomen pelvis wo con DATE: 04/01/2022 23:49 INDICATION: Epigastric abdominal pain. TECHNIQUE: Computed tomography (CT) of the abdomen and pelvis was performed without intravenous contr ast. Automated exposure control and iterative reconstruction technique were employed. The dose-length product was 419.02 mGy-cm. COMPARISON: CT abdomen and pelvis 12/29/2021, MRCP 12/30/21 FINDINGS: The visualized portions of the lung bases demonstrate mild atelectasis. No pleural effusion . The heart size is normal. No pericardial effusion. The liver, spleen, pancreas, adrenal glands, and kidneys are normal. Again seen is a 9 mm stone in the cystic duct. There are changes of cholecystect sara. There are dropped gallstones in the gallbladder fossa and posterior to the liver. There are no d ilated loops of bowel. The appendix is normal. IMPRESSION: 1. Persistent 9 mm stone in the cystic duct status post cholecystectomy. 2. Dropped gallstones in the gallbladder fossa and posterior to the liver. Reviewed, dictated and finalized at location A.
[2022-04-01 22:41] VITALS: BP 132/78; PULSE 73; RESP 16; TEMP 36.5; O2SAT 100
[2022-04-01 23:12] LABS: Basophils Absolute Auto 0.1 K/mm3 (0.0-0.1); Basophils Percent Auto 0.7 % (0.2-1.2); Eosinophils Absolute Auto 0.2 K/mm3 (0-0.3); Eosinophils Percent Auto 2.8 % (0-4.4); Hemoglobin 13.3 g/dL (12.0-15.0); Immature Granulocyte Absolute 0.02 K/mm3 (0.00-0.031); Immature Granulocyte Percent A 0.3 % (0-0.5); Lymphocytes Percent Auto 24.2 % (18.3-44.2); Mean Corpuscular HGB Conc 33.3 g/dl (32-36); Mean Corpuscular Hemoglobin 29.8 pg (26-34); Mean Corpuscular Volume 89.5 fl (80-100); Monocytes Absolute Auto 0.5 K/mm3 (0.1-0.6); Monocytes Percent Auto 6.4 % (2.6-8.5); Neutrophils Absolute Auto 4.9 K/mm3 (1.3-6.7); Neutrophils Percent Auto 65.6 % (45.5-73.1); Platelet Count Result 223 k/mm3 (150-375); Red Blood Count 4.47 M/mm3 (4.2-5.4); Red Cell Distribution Width 13.7 % (11.5-14.5); White Blood Count 7.5 K/mm3 (4.5-10.0)
[2022-04-01 23:14] LABS: Appearance Urine Clear (Clear); Bilirubin Urine Negative (Negative); Color Urine Yellow (Yellow); Glucose Urine UA Negative (Negative); Ketones Urine Negative (Negative); Leukocyte Esterase Ur Negative LEU/UL (Negative); Nitrate Urine Negative (Negative); Protein Urine Negative (Negative); Specific Grav Ur 1.015 (1.001-1.035); Urobilinogen Urine 0.2 mg/dL (<2.0)
[2022-04-01 23:15] LABS: Add Urine Microscopic? YES; Blood Urine Trace (Negative)
[2022-04-01 23:23] LABS: Alanine Aminotransferase 22 U/L (6-35); Albumin Level 4.4 g/dL (3.5-5.1); Alkaline Phosphatase 82 U/L (38-126); Anion Gap 6 mmol/L (8-16); Aspartate Amino Transferase 23 U/L (14-36); Bilirubin,Total 0.7 mg/dL (0.2-1.3); Blood Urea Nitrogen 14 mg/dL (7-17); Calcium 9.3 mg/dL (8.4-10.2); Carbon Dioxide 23 mmol/L (22-30); Chloride 110 mmol/L (98-107); Estimated CRCL calculation 75 ml/min; Estimated Glomerular Filt Rate > 60; Glucose 112 mg/dL (65-110); Lipase 104 U/L (23-300); Potassium 3.7 mmol/L (3.4-5.0); Sodium 139 mmol/L (137-145)
--- NOTE | 2022-04-01 23:31 | ED.ABDPAIN ---
HPI - Abdominal Pain General Chief Complaint: Abdominal Pain <Koki Rowland PA-C - Last Filed: 04/02/22 03:55> Stated Complaint: abd pain <Koki Rowland PA-C - Last Filed: 04/02/22 03:55> Time Seen by Provider: 04/01/22 22:53 <Koki Rowland PA-C - Last Filed: 04/02/22 03:55> Source: patient <Koki Rowland PA-C - Last Filed: 04/02/22 03:55> Mode of arrival: ambulatory <Koki Rowland PA-C - Last Filed: 04/02/22 03:55> Limitations: no limitations <Koki Rowland PA-C - Last Filed: 04/02/22 03:55> History of Present Illness HPI narrative: This is a 42-year-old female that presents to the emergency department for epigastric pain. Ongoing over the last couple of days. Reports the pain felt similar to when she was having trouble with her gallbladder and had it removed. Reports associated nausea. Denies fever, vomiting, diarrhea, or dysuria. <Koki Rowland PA-C - Last Filed: 04/02/22 03:55> Related Data Allergies/Adverse Reactions: Allergies Allergy/AdvReac Type Severity Reaction Status Date / Time No Known Allergies Allergy Verified 04/01/22 22:47 <Koki Rowland PA-C - Last Filed: 04/02/22 03:55> Review of Systems Review of Systems: CONSTITUTIONAL: Denies fever GASTROINTESTINAL: Reports abdominal pain, nausea. Denies vomiting, or diarrhea. GENITOURINARY: Denies dysuria <Koki Rowland PA-C - Last Filed: 04/02/22 03:55> All systems reviewed & are unremarkable except as noted in HPI and below <Koki Rowland PA-C - Last Filed: 04/02/22 03:55> PMFSH Past Medical History Medical History: Medical History (Updated 04/02/22 @ 03:53 by Koki Rowland PA-C) No active medical problems <Koki Rowland PA-C - Last Filed: 04/02/22 03:55> Surgical History Surgical History: Surgical History (Updated 04/01/22 @ 23:32 by Koki Rowland PA-C) History of cholecystectomy <Koki Rowland PA-C - Last Filed: 04/02/22 03:55> Social History Social History: Social History (Updated 04/01/22 @ 23:33 by Koki Rowland PA-C) Smoking status: Never smoker Alcohol intake: never <Koki Rowland PA-C - Last Filed: 04/02/22 03:55> Exam Narrative: GENERAL: Well-appearing, well-nourished, and in no acute distress. HEAD: Normocephalic, atraumatic. EYES: EOMI. CHEST: Clear to auscultation. No respiratory distress. No wheezes rales or rhonchi HEART: Regular rate and rhythm. No murmur heard. Normal peripheral pulses. ABDOMEN: Soft, nondistended, normal active bowel sounds. Mild tenderness to palpation in the epigastrium, without guarding. No CVA tenderness EXTREMITIES: Normal range of motion. No edema. SKIN: Warm, dry, no rash. NEURO: No focal deficits. Alert and oriented x3. PSYCH: Normal mood and affect <Koki Rowland PA-C - Last Filed: 04/02/22 03:55> Course INSTRUCTIONAL SYSTEMS SPECIALIST/PA Physician Supervision I did not see this patient but the care plan was discussed with me, labs and imaging reviewed I agree with the documentation as above <José Truong MD - Last Filed: 04/02/22 05:01> Vital Signs Vital signs: Vital Signs Temperature 36.5 C 04/01/22 22:41 Pulse Rate 73 04/01/22 22:41 Respiratory Rate 16 04/01/22 22:41 Blood Pressure 132/78 04/01/22 22:41 Pulse Oximetry 100 04/01/22 22:41 Temperature 36.5 C 04/01/22 22:41 Pulse Rate 75 04/02/22 04:11 Respiratory Rate 18 04/02/22 04:11 Blood Pressure 110/78 04/02/22 04:11 Pulse Oximetry 99 04/02/22 04:11 <Koki Rowland PA-C - Last Filed: 04/02/22 03:55> Vital Signs Temperature 36.5 C 04/01/22 22:41 Pulse Rate 73 04/01/22 22:41 Respiratory Rate 16 04/01/22 22:41 Blood Pressure 132/78 04/01/22 22:41 Pulse Oximetry 100 04/01/22 22:41 Temperature 36.5 C 04/01/22 22:41 Pulse Rate 75 04/02/22 04:11 Respiratory Rate 18 04/02/22 04:11 Blood Pressure 110/78 04/02/22 04:11 Pulse Oximetry 99
[2022-04-01] MEDS: PANTOPRAZOLE SODIUM IV 40 MG VIAL IV PUSH (23:53)
[2022-04-01] MEDS: SODIUM CHLORIDE 0.9% IV 1,000 ML 999 ML IV CONT (23:53)
[2022-04-01] MEDS: ONDANSETRON INJ 4 MG/2 ML VIAL IV PUSH (23:53)
[2022-04-02] VITALS (7 sets, daily range): BP systolic 110–120; BP diastolic 71–79; PULSE 67–75; RESP 18; O2SAT 95–99
[2022-04-02] MEDS: MORPHINE SULFATE (*CRX) 4 MG/ML INJ IV PUSH (02:01)
== END 2022-04-02 04:11 | disposition home or self-care (01) ==
PROVIDERS: Physician Assistant; Emergency Provider Emergency Medicine
DX: K80.50 Calculus of bile duct without cholangitis or cholecystitis without obstruction (principal)
CPT/HCPCS: 36415; 74176; 80053; 81001; 81025; 83690; 85025; 96365; 96374; 96375; 99284; C9113; J0131; J2270; J2405; J7030